=== PATIENT | female | born 1965 ===

== ENCOUNTER 2017-08-31 21:49 | Emergency (ER) | payer MEDICAID, OTHER, SELFPAY ==
[2017-08-31 21:57] VITALS: PULSE 85; TEMP 97.5; O2SAT 100; BMI 23.6
[2017-08-31] MEDS ORDERED: Atrop/Hyosc/Scopal/PB Elixir (120 ml) PO STA (22:22)
[2017-08-31] MEDS ORDERED: Alum-Mag Hydrox-Simethicone Susp (30 mL) PO STA (22:22)
--- NOTE | 2017-08-31 22:23 | ED PDOC ---
Arrival/HPI - General Chief Complaint: Shortness Of Breath Time Seen by Provider: 08/31/17 22:18 Historian: Patient - History of Present Illness Narrative History of Present Illness (Text): 08/31/17 22:18 Amira Mauro is a 52 year old female, whose past medical history includes gastritis, who presents to the emergency department complaining of upper abdominal pain that radiates to her back which began about 1/2 an hour prior to arrival. Patient states that she experiences shortness of breath because it hurts to breathe and her pain worsens when sitting up. Patient's daughter notes that patient has been to the emergency department before for similar symptoms which were diagnosed as low potassium levels. Patient denies any fever, chills, chest pain, nausea, vomiting, diarrhea, urinary symptoms, neck pain, headache, dizziness, or any other complaints. Time/Duration: 1/2 hour Symptom Onset: Gradual Symptom Course: Unchanged Severity Level: Mild Activities at Onset: Light Context: Home Past Medical History - Provider Review Nursing Documentation Reviewed: Yes - Cardiac Hx Cardiac Disorders: No - Pulmonary Hx Respiratory Disorders: No - Neurological Hx Neurological Disorder: No - HEENT Hx HEENT Disorder: No - Renal Hx Renal Disorder: No - Endocrine/Metabolic Hx Endocrine Disorders: No - Hematological/Oncological Hx Anemia: Yes - Integumentary Hx Dermatological Disorder: No - Musculoskeletal/Rheumatological Hx Musculoskeletal Disorders: No - Gastrointestinal Hx Gastritis: Yes - Genitourinary/Gynecological Hx Genitourinary Disorders: No - Psychiatric Hx Psychophysiologic Disorder: No Hx Substance Use: No Family/Social History - Physician Review Nursing Documentation Reviewed: Yes Family/Social History: No Known Family HX Smoking Status: Never Smoked Hx Alcohol Use: No Hx Substance Use: No Allergies/Home Meds Allergies/Adverse Reactions: Allergies aspirin Allergy (Verified 08/31/17 21:57) RASH Home Medications: Home Meds Medication Instructions Recorded Confirmed Omeprazole 20 mg PO DAILY 08/31/17 08/31/17 Review of Systems - Physician Review All systems were reviewed & negative as marked: Yes - Review of Systems Constitutional: absent: Fevers, Night Sweats Eyes: absent: Vision Changes ENT: absent: Hearing Changes Respiratory: SOB Gastrointestinal: Abdominal Pain Genitourinary Female: absent: Dysuria, Frequency Musculoskeletal: Back Pain Skin: absent: Rash, Pruritis Neurological: absent: Headache, Dizziness Endocrine: absent: Diaphoresis Hemo/Lymphatic: absent: Adenopathy Psychiatric: absent: Depression Physical Exam Vital Signs Reviewed: Yes Vital Signs Temp Pulse Resp BP Pulse Ox 08/31/17 23:46 85 18 139/87 100 08/31/17 22:00 19 100 08/31/17 21:57 97.5 F L 85 21 137/75 100 08/31/17 21:55 97.5 F L 85 21 137/75 100 Blood Pressure: Normal Pulse: Regular Respiratory Rate: Normal Appearance: Positive for: Well-Appearing, Non-Toxic, Comfortable Pain Distress: Mild Mental Status: Positive for: Alert and Oriented X 3 - Systems Exam Head: Present: Atraumatic, Normocephalic Pupils: Present: PERRL Extroacular Muscles: Present: EOMI Conjunctiva: Present: Normal Mouth: Present: Moist Mucous Membranes Respiratory/Chest: Present: Clear to Auscultation, Good Air Exchange. No: Respiratory Distress, Accessory Muscle Use Cardiovascular: Present: Regular Rate and Rhythm, Normal S1, S2. No: Murmurs Abdomen: Present: Normal Bowel Sounds, Other (Moderate epigastric pain on palpation). No: Tenderness, Distention, Peritoneal Signs Upper Extremity: Present: Normal Inspection, Normal ROM, NORMAL PULSES. No: Cyanosis, Edema, Tenderness, Swelling, Erythema, Temperature Abnormalties, Deformity Lower Extremity: Present: Normal Inspection, NORMAL PULSES, Normal ROM. No: Edema, Cyanosis, Tenderness, Swelling, Erythema, Deformity Skin: Present: Warm, Dry, Normal Color. No: Rashes Psychiatric: Present: Alert, Oriented x 3, Normal Insight, Normal Concentration Medical Decision Making ED Course and Treatment: 08/31/17 22:27 Impression: 52 year old female complaining of upper abdominal pain that radiates to her back which began about 1/2 prior to arrival. Differential Diagnosis included but are not limited to: GERD vs. Biliary Colic vs. Acute Coronary syndrome. Plan: -- EKG -- Chest X-ray -- Labs -- Maalox, Elixir, and Lidocaine -- Reassess and disposition Prior Visits: Notes and results from previous visits were reviewed. Patient was last seen in the emergency department on 12/16/16 for epigastric abdominal pain. Patient was discharged home. Progress Notes: EKG: Ordered, reviewed, and independently interpreted the EKG. Rate : 82 BPM Rhythm : NSR Interpretation : Intervals within normal limits. No Ectopy. ST-T waves withing normal limits. Comparison : No previous EKG for comparison. 08/31/17 22:33 On reevaluation, patient states her pain has improved after GI cocktail. Patient will be prescribed a short course of PPIs. Patient is advised to follow up with her PMD and may need to be checks for ulcers if symptoms persist. - Lab Interpretations Lab Results: 08/31/17 22:00 08/31/17 22:00 Lab Results 08/31/17 22:00: Sodium 139, Potassium 3.1 L, Chloride 103, Carbon Dioxide 24, Anion Gap 15, BUN 19, Creatinine 0.6 L, Est GFR ( Amer) > 60, Est GFR ( Non-Af Amer) > 60, Random Glucose 110, Calcium 9.2, Total Bilirubin 0.7, AST 60 H, ALT 39, Alkaline Phosphatase 106, Troponin I < 0.01, Total Protein 8.2, Albumin 4.5, Globulin 3.7, Albumin/Globulin Ratio 1.2, Lipase 57 08/31/17 22:00: WBC 9.5, RBC 3.63, Hgb 8.5 L, Hct 28.0 L, MCV 77.1 L, MCH 23.4 L , MCHC 30.4 L, RDW 16.3 H, Plt Count 378, MPV 11.1 H, Gran % 55.7, Lymph % (Auto ) 35.8 H, Rosebud % (Auto) 6.2 H, Eos % (Auto) 2.1, Baso % (Auto) 0.2, Gran # 5.31 , Lymph # 3.4, Rosebud # 0.6, Eos # 0.2, Baso # 0.02 I have reviewed the lab results: Yes - RAD Interpretation Radiology Orders: 08/31/17 22:19 CHEST PORTABLE [RAD] Stat - Medication Orders Current Medication Orders: Discontinued Medications Al Hydrox/Mg Hydrox/Simethicone (Maalox Plus 30 Ml) 30 ml PO STAT STA Stop: 08/31/17 22:23 Last Admin: 08/31/17 22:45 Dose: 30 ml Belladonna/Phenobarbital ( Elixir) 5 ml PO STAT STA Stop: 08/31/17 22:23 Last Admin: 08/31/17 22:45 Dose: 5 ml Lidocaine HCl (Lidocaine 2% Viscous) 15 ml MM STAT STA Stop: 08/31/17 22:22 Last Admin: 08/31/17 22:45 Dose: 15 ml Potassium Chloride (Potassium Chloride Oral Soln) 40 meq PO STAT STA Stop: 08/31/17 23:37 Last Admin: 08/31/17 23:45 Dose: 40 meq - Scribe Statement The provider has reviewed the documentation as recorded by the Alejandro Flynn Provider Scribe Attestation: All medical record entries made by the Scribe were at my direction and personally dictated by me. I have reviewed the chart and agree that the record accurately reflects my personal performance of the history, physical exam, medical decision making, and the department course for this patient. I have also personally directed, reviewed, and agree with the discharge instructions and disposition. Disposition/Present on Arrival - Present on Arrival Any Indicators Present on Arrival: No History of DVT/PE: No History of Uncontrolled Diabetes: No Urinary Catheter: No History of Decub. Ulcer: No History Surgical Site Infection Following: None - Disposition Have Diagnosis and Disposition been Completed?: Yes Diagnosis: Epigastric abdominal pain, Microcytic anemia, Gastritis, Anemia Disposition: HOME/ ROUTINE Disposition Time: 23:40 Condition: GOOD Discharge Instructions (ExitCare): Iron Deficiency Anemia (ED), Epigastric Pain (ED) Print Language: [place] Prescriptions: Pantoprazole Sodium [Protonix] 40 mg PO DAILY 14 Days #14 tab Forms: [employer] (Lithuanian)
[2017-08-31 22:49] LABS: ALB/GLOB RATIO 1.2 (1.1-1.8); ALKALINE PHOSPHATASE 106 U/L (38-126); ALT/SGPT 39 U/L (7-56); AST/SGOT 60 U/L (14-36); BILIRUBIN,TOTAL 0.7 mg/dL (0.2-1.3); BLOOD UREA NITROGEN 19 mg/dL (7-21); CALCIUM 9.2 mg/dL (8.4-10.5); CARBON DIOXIDE 24 mmol/L (21-33); CHLORIDE 103 mmol/L (98-107); GFR AFRICAN-AMERICAN > 60; GLUCOSE,RANDOM 110 mg/dL (70-110); LIPASE 57 U/L (23-300); POTASSIUM 3.1 mmol/L (3.6-5.0); SODIUM 139 mmol/L (132-148); TOTAL PROTEIN 8.2 g/dL (5.8-8.3)
[2017-08-31 23:00] LABS: TROPONIN I < 0.01 ng/mL
[2017-08-31 23:13] LABS: BASO # 0.02 K/mm3 (0.0-2.0); BASO % 0.2 % (0.0-3.0); EOS # 0.2 (0.0-0.7); EOS % 2.1 % (1.5-5.0); GRAN # 5.31 (1.4-6.5); GRAN % 55.7 % (50.0-68.0); LYMPH # 3.4 (1.2-3.4); LYMPH % 35.8 % (22.0-35.0); MEAN CELL VOLUME 77.1 fl (80.0-105.0); MEAN CORPUSCULAR HEMOGLOBIN 23.4 pg (25.0-35.0); MEAN CORPUSCULAR HGB CONC 30.4 g/dl (31.0-37.0); MEAN PLATELET VOLUME 11.1 fl (7.0-11.0); MONO # 0.6 (0.1-0.6); MONO % 6.2 % (1.0-6.0); RED CELL DISTRIBUTION WIDTH 16.3 % (11.5-14.5); WHITE BLOOD COUNT 9.5 10^3/ul (4.5-11.0)
[2017-08-31] MEDS ORDERED: Potassium Chloride 40 mEq/30 ml LIQ UD PO STA (23:36)
[2017-08-31 23:47] VITALS: BP 139/87; RESP 18
--- NOTE | 2017-09-01 09:03 | RAD ---
HISTORY: sob COMPARISON: No prior. FINDINGS: LUNGS: No active pulmonary disease. PLEURA: No significant pleural effusion identified, no pneumothorax apparent. CARDIOVASCULAR: Normal. OSSEOUS STRUCTURES: No significant abnormalities. VISUALIZED UPPER ABDOMEN: Normal. OTHER FINDINGS: None. IMPRESSION: No active disease.
--- NOTE | 2017-09-01 17:36 | CARD ---
APPROVED REPORT EKG Measurement Heart [id number] <Conclusion> Normal sinus rhythm Normal ECG
== END 2017-08-31 23:53 | disposition home or self-care (01) ==
LOC: ED 21:49
DX: K29.70 Gastritis, unspecified, without bleeding (principal); R10.13 Epigastric pain; D50.9 Iron deficiency anemia, unspecified
CPT/HCPCS: 71010; 80053; 83690; 84484; 85025; 93005; 99284; J3480